=== PATIENT | female | born 1935 | race Caucasian/White ===

== ENCOUNTER 2016-04-29 10:02 | Outpatient (CLI) | payer MEDICARE, BC | END 2016-04-29 10:03 | disposition home or self-care (01) | DX: I48.91 Unspecified atrial fibrillation (principal); Z79.01 Long term (current) use of anticoagulants ==

== ENCOUNTER 2016-09-01 10:46 | Outpatient (CLI) | payer MEDICARE, BC | END 2016-09-01 10:47 | disposition home or self-care (01) | LOC: LAB 10:46 | PROVIDERS: ATTEND Internal Medicine | DX: I48.91 Unspecified atrial fibrillation (principal); Z79.01 Long term (current) use of anticoagulants | CPT/HCPCS: 85610 ==

== ENCOUNTER 2017-04-25 14:58 | Outpatient (CLI) | payer MEDICARE, OTHER | END 2017-04-25 14:59 | disposition critical access hospital (66) | LOC: EMS 14:58 | PROVIDERS: ATTEND Surgery | DX: R55 Syncope and collapse (principal) | CPT/HCPCS: A0425; A0429 ==

== ENCOUNTER 2017-04-25 15:15 | Emergency (ER) | payer MEDICARE, OTHER ==
--- NOTE | 2017-04-25 15:41 | ED Physician Documentation ---
History of Present Illness - Stated complaint Stated Complaint: NEAR SYNCOPE - Chief complaint Chief Complaint: Neuro - History obtained from History obtained from: Patient, EMS - History of Present Illness Timing: Today Pain level max: 0 Pain level now: 0 Improved by: sitting down Worsened by: standing up - Additonal information Additional information: Patient is an 81-year-old female who had approximately 500 mL's of blood removed this morning at the [facility], then went to [facility] and was walking around when she began to feel lightheaded and dizzy. This resolved with sitting down. Now feels normal. She normally has her blood taken like this approximately every 6 weeks for her erythrocytosis. Did not have any chest pain , shortness of breath, palpitations. Review of Systems Ten Systems: 10 systems reviewed and negative Constitutional: denies: Fever, Chills Eyes: denies: Photophobia Ears: denies: Ear pain Nose: denies: Rhinorrhea / runny nose, Congestion Throat: denies: Sore throat Cardiac: denies: Chest pain / pressure, Palpitations Respiratory: denies: Dyspnea, Cough, Wheezing GI: denies: Abdominal Pain, Nausea, Vomiting, Diarrhea Skin: denies: Rash Musculoskeletal: denies: Neck pain, Back pain Neurologic: denies: Focal weakness, Numbness, Headache PD PAST MEDICAL HISTORY - Past Medical History Past Medical History: Yes Cardiovascular: Hypertension, Atrial fibrillation Respiratory: None Endocrine/Autoimmune: None GI: None : None HEENT: Chronic vision loss Psych: None Musculoskeletal: Chronic back pain Derm: None Other Past Medical History: erythrocytosis. - Past Surgical History Past Surgical History: Yes General: Other Cardiovascular: Pacemaker HEENT: Other - Present Medications Home Medications: Ambulatory Orders Medication Instructions Recorded Confirmed Calcium Carbonate/Vitamin D3 600 mg PO BID 09/04/12 04/25/17 [Calcium + Vitamin D Tablet] Lisinopril/Hydrochlorothiazide 1 each PO DAILY 09/04/12 04/25/17 [Lisinopril-Hctz 20-12.5 mg Tab] Loratadine [Claritin] 10 mg PO DAILY 09/04/12 04/25/17 Warfarin Sodium [Coumadin] 4 mg PO DAILY 09/04/12 04/25/17 amLODIPine [Norvasc] 2.5 mg PO DAILY 09/04/12 04/25/17 Cephalexin [Keflex] 500 mg PO Q6H #20 capsule 04/25/17 - Allergies Allergies/Adverse Reactions: Allergies Allergy/AdvReac Type Severity Reaction Status Date / Time codeine [Codeine] AdvReac Mild Nausea Verified 04/29/16 10:11 - Social History Does the pt smoke?: No Smoking Status: Never smoker PD ED PE NORMAL - Vitals Vital signs reviewed: Yes - General General: Alert and oriented X 3, No acute distress - HEENT HEENT: Moist mucous membranes - Neck Neck: Supple, no meningeal sign - Cardiac Cardiac: RRR, Strong equal pulses, Other (3/6 systolic murmur) - Respiratory Respiratory: No respiratory distress, Clear bilaterally - Abdomen Abdomen: Soft, Non tender, Non distended - Derm Derm: Warm and dry - Extremities Extremities: No edema, No calf tenderness / cord - Neuro Neuro: Alert and oriented X 3, lead recoverer 2-12 intact, No motor deficit, No sensory deficit, Normal speech - Psych Psych: Normal mood, Normal affect Results - Vitals Vitals: Vital Signs - 24 hr 04/25/17 04/25/17 15:20 16:35 Temperature 36.1 C L Heart Rate 59 L 61 Respiratory 18 14 Rate Blood Pressure 140/67 H 133/66 H O2 Saturation 99 97 Oxygen O2 Source Room air - EKG (time done) 1525 Rate: Rate (enter#) (64) Rhythm: Paced - Labs Labs: Laboratory Tests 04/25/17 04/25/17 04/25/17 15:48 15:48 15:48 WBC 9.5 RBC 4.81 Hgb 13.3 Hct 40.5 MCV 84.3 MCH 27.6 MCHC 32.8 RDW 16.3 H Plt Count 230 MPV 8.3 Neut # 5.8 Lymph # 2.4 Jennings # 0.9 Eos # 0.3 Baso # 0.1 Absolute Nucleated RBC 0.00 Nucleated RBC % 0.0 PT 28.6 H INR 2.6 H Sodium 137 Potassium 3.8 Chloride 101 Carbon Dioxide 27 Anion Gap 9.0 BUN 22 H Creatinine 0.8 Estimated GFR (MDRD) 69 L Glucose 136 H Calcium 8.8 Urine Color Urine Clarity Urine pH Ur Specific Biggs Urine Protein Urine Glucose (UA) Urine Ketones Urine Occult Blood Urine Nitrite Urine Bilirubin Urine Urobilinogen Ur Leukocyte Esterase Urine RBC Urine WBC Ur Squamous Epith Cells Amorphous Sediment Urine Bacteria Ur Microscopic Review Urine Culture Comments 04/25/17 16:00 WBC RBC Hgb Hct MCV MCH MCHC RDW Plt Count MPV Neut # Lymph # Jennings # Eos # Baso # Absolute Nucleated RBC Nucleated RBC % PT INR Sodium Potassium Chloride Carbon Dioxide Anion Gap BUN Creatinine Estimated GFR (MDRD) Glucose Calcium Urine Color YELLOW Urine Clarity HAZY Urine pH 7.0 Ur Specific Biggs 1.020 Urine Protein NEGATIVE Urine Glucose (UA) NEGATIVE Urine Ketones NEGATIVE Urine Occult Blood NEGATIVE Urine Nitrite NEGATIVE Urine Bilirubin NEGATIVE Urine Urobilinogen 0.2 (NORMAL) Ur Leukocyte Esterase TRACE H Urine RBC None Seen Urine WBC 4-5 Ur Squamous Epith Cells NONE SEEN Amorphous Sediment Marked Urine Bacteria None Seen Ur Microscopic Review INDICATED Urine Culture Comments INDICATED PD MEDICAL DECISION MAKING - ED course Complexity details: reviewed old records, reviewed results, re-evaluated patient , considered differential, d/w patient ED course: Patient is an 81-year-old female with an episode of lightheadedness and near syncope earlier today. No chest pain, no palpitations. No evidence of arrhythmia. No acute findings on telemetry. No acute findings on laboratory testing other than what appears to be a UTI. Abdomen is soft, nontender nondistended. Will place on antibiotics for the UTI and see how she feels at home. Tolerating p.o. without difficulty here. No lightheaded or dizziness with standing or walking here. Patient counseled regarding signs and symptoms for which I believe and urgent re-evaluation would be necessary. Patient with good understanding of and agreement to plan and is comfortable going home at this time This document was made in part using voice recognition software. While efforts are made to proofread this document, sound alike and grammatical errors may occur. Departure - Departure Disposition: 01 Home, Self Care Clinical Impression: Near syncope UTI (urinary tract infection) Qualifiers: Urinary tract infection type: acute cystitis Hematuria presence: without hematuria Qualified Code(s): N30.00 - Acute cystitis without hematuria Condition: Good Instructions: ED Near Syncope Vasovagal Follow-Up: Colin Adams MD [Primary Care Provider] - Within 3 Days Prescriptions: Cephalexin [Keflex] 500 mg PO Q6H #20 capsule Comments: Take all antibiotics until gone. Return if you worsen. Drink plenty of fluid and rest. Discharge Date/Time: 04/25/17 16:38
[2017-04-25 15:55] LABS: BASOPHILS # (AUTO) 0.1 10^3/uL (0.0-0.1); EOSINOPHILS # (AUTO) 0.3 10^3/uL (0.0-0.7); HGB - HEMOGLOBIN 13.3 g/dL (12.0-16.0); LYMPHOCYTES # (AUTO) 2.4 10^3/uL (1.5-3.5); LYMPHOCYTES % (AUTO) 25.8 %; MEAN CORPUSCULAR HEMOGLOBIN 27.6 pg (27.0-31.0); MEAN CORPUSCULAR HGB CONC 32.8 g/dL (32.0-36.0); MEAN CORPUSCULAR VOLUME 84.3 fL (81.0-99.0); MEAN PLATELET VOLUME 8.3 fL (7.9-10.8); MONOCYTES # (AUTO) 0.9 10^3/uL (0.0-1.0); MONOCYTES % (AUTO) 9.3 %; NEUTROPHILS # (AUTO) 5.8 10^3/uL (1.5-6.6); NEUTROPHILS % (AUTO) 60.9 %; PLT - PLATELET COUNT 230 10^3/uL (130-450); RED BLOOD COUNT 4.81 10^6/uL (4.20-5.40); RED CELL DISTRIBUTION WIDTH 16.3 % (12.0-15.0); WHITE BLOOD COUNT 9.5 x10^3/uL (4.8-10.8)
[2017-04-25 16:02] LABS: CALCIUM 8.8 mg/dL (8.5-10.3); CREATININE 0.8 mg/dL (0.4-1.0); INR 2.6 (0.8-1.2); PT - PROTHROMBIN TIME 28.6 secs (9.9-12.6)
[2017-04-25 16:12] LABS: BILIRUBIN,URINE NEGATIVE (NEGATIVE); GLUCOSE, URINE (UA) NEGATIVE (NEGATIVE); KETONES,URINE (UA) NEGATIVE (NEGATIVE); LEUKOCYTE ESTERASE, URINE TRACE (NEGATIVE); NITRITE,URINE NEGATIVE (NEGATIVE); OCCULT BLOOD,URINE NEGATIVE (NEGATIVE); PROTEIN,URINE NEGATIVE (NEGATIVE); UROBILINOGEN,URINE 0.2 (NORMAL) E.U./dL (NORMAL)
[2017-04-25 16:13] LABS: CLARITY,URINE HAZY (CLEAR)
[2017-04-25 16:24] LABS: AMORPHOUS SEDIMENT,UR Marked /LPF; BACTERIA,URINE None Seen /HPF (None Seen); RBC,URINE None Seen /HPF (0-5); SQUAMOUS EPITHELIAL CELL,UR NONE SEEN (<= Few)
[2017-04-25] MEDS ORDERED: cephALEXin 250 MG CAPSULE PO STA (16:29)
[2017-04-25 16:37] VITALS: BP 133/66
== END 2017-04-25 16:38 | disposition home or self-care (01) ==
LOC: EDUNIT# → ED 15:15
DX: R55 Syncope and collapse (principal); N30.00 Acute cystitis without hematuria; I48.91 Unspecified atrial fibrillation; I10 Essential (primary) hypertension; D75.1 Secondary polycythemia; Z95.0 Presence of cardiac pacemaker; Z79.01 Long term (current) use of anticoagulants
CPT/HCPCS: 36415; 80048; 81001; 81003; 85025; 85610; 87086; 93005; 99283

== ENCOUNTER 2017-07-12 09:39 | Outpatient (CLI) | payer MEDICARE, OTHER | END 2017-07-12 09:40 | disposition home or self-care (01) | LOC: LAB 09:39 | PROVIDERS: ATTEND Internal Medicine | DX: I48.91 Unspecified atrial fibrillation (principal); Z79.01 Long term (current) use of anticoagulants | CPT/HCPCS: 85610 ==

== ENCOUNTER 2017-08-29 11:16 | Outpatient (CLI) | payer MEDICARE, OTHER | END 2017-08-29 11:17 | disposition home or self-care (01) | LOC: LAB 11:16 | PROVIDERS: ATTEND Internal Medicine | DX: I48.91 Unspecified atrial fibrillation (principal); Z79.01 Long term (current) use of anticoagulants | CPT/HCPCS: 85610 ==

== ENCOUNTER 2017-10-10 09:53 | Outpatient (CLI) | payer MEDICARE, OTHER ==
[2017-10-10 10:12] LABS: INR 1.8 (0.8-1.2); PT - PROTHROMBIN TIME 19.5 secs (9.9-12.6)
== END 2017-10-10 09:54 | disposition home or self-care (01) ==
LOC: LAB 09:53
PROVIDERS: ATTEND Internal Medicine
DX: I48.91 Unspecified atrial fibrillation (principal); Z79.01 Long term (current) use of anticoagulants
CPT/HCPCS: 36415; 85610

== ENCOUNTER 2018-03-06 14:57 | Outpatient (CLI) | payer MEDICARE, OTHER ==
[2018-03-06 15:41] LABS: INR 2.2 (0.8-1.2)
== END 2018-03-06 14:58 | disposition home or self-care (01) ==
LOC: LAB 14:57
PROVIDERS: ATTEND Internal Medicine
DX: I48.91 Unspecified atrial fibrillation (principal); Z79.01 Long term (current) use of anticoagulants
CPT/HCPCS: 36415; 85610

== ENCOUNTER 2018-05-16 10:05 | Outpatient (CLI) | payer MEDICARE, OTHER | END 2018-05-16 10:06 | disposition home or self-care (01) | LOC: LAB 10:05 | PROVIDERS: ATTEND Internal Medicine | DX: I48.91 Unspecified atrial fibrillation (principal); Z79.01 Long term (current) use of anticoagulants | CPT/HCPCS: 85610 ==

== ENCOUNTER 2019-05-29 13:37 | Outpatient (CLI) | payer MEDICARE, OTHER | END 2019-05-29 13:38 | disposition home or self-care (01) | LOC: LAB 13:37 | PROVIDERS: ATTEND Internal Medicine | DX: I48.91 Unspecified atrial fibrillation (principal); Z79.01 Long term (current) use of anticoagulants | CPT/HCPCS: 85610 ==

== ENCOUNTER 2019-09-24 13:33 | Outpatient (CLI) | payer MEDICARE, OTHER | END 2019-09-24 13:34 | disposition home or self-care (01) | LOC: LAB 13:33 | PROVIDERS: ATTEND Internal Medicine | DX: I48.91 Unspecified atrial fibrillation (principal); Z79.01 Long term (current) use of anticoagulants | CPT/HCPCS: 85610 ==

== ENCOUNTER 2019-12-13 10:23 | Outpatient (CLI) | payer MEDICARE, OTHER ==
--- NOTE | 2019-12-13 11:18 | SLEEP CARE CONSULTATION ---
Information from patient questionnaire entered by Ashely Farias. I have reviewed and concur with the information entered by Ashely Farias. This document represents the service I personally performed and the decisions made by me, Saba Gilbert ARNP. History of Present Illness Service Date and Time: 12/13/2019 1023 Reason for Visit: New patient Chief Complaint: reports: Insomnia (difficulty getting back to sleep if awakens), Snoring, Other (referral by MD, erythrocytosis with unknown cause). denies: Unrefreshed sleep, Excessive daytime sleepiness, Observed pauses in breathing, Fatigue, Frequent awakenings at night Date of Onset: 4-5 years Usual bedtime: 10:30-11 pm Time it takes to fall asleep: a few minutes Snores at night: Yes (i guess) Observed to quit breathing while asleep: No Number of times waking at night: 2-3 Reasons for waking at night: reports: Bathroom, Other (awake from dreams). denies: Choking, Snoring, Gasping for air Toss, Turn, or Twitch while sleeping: No Recalls having dreams: Yes Usually gets out of bed at: 7-7:30 am Feels refreshed in the morning: Yes Morning headache: No Sleepy or fatigued during the day: Yes Ever fallen asleep while driving: No Takes day naps: Yes (occasionally; 1-2 times a week for 20 minutes) Dreams during day naps: No Prior sleep studies: No Additional HPI information: I had the pleasure of seeing ALEJANDRINA NAVARRO today regarding the possibility of her having a sleep disorder. Her current complaints are snoring and history of erythrocytosis for which her head sawyer automatic sent her for evaluation of possible RICHAR. Patient has a pacemaker and is on chronic warfarin. She has hypertension and Raynauds. They have had her give blood as therapy but she states it is getting hard for them to obtain it. There is no somniloquy (sleep talking) or somnambulism (sleep walking). She has never experienced sleep paralysis, cataplexy, or symptoms of restless leg syndrome. - Parasomnia Symptoms Ever been unable to move upon waking from sleep: No Walks in sleep: No Talks in sleep: No Ever acted out dreams in sleep: No Ever felt weak in the knees when startled or emotional: No Bothered by creepy, crawly, restless sensations in legs: No Problems with memory or concentration: No Subjective Initial [place] Sleepiness Scale score: 7 (in 2020) Past Medical History Past Medical History: reports: Hypertension, Claustrophobia, Arrythmia, Other (A-fib/pacemaker, RVO, Raynaud's). denies: Dysphagia, Congestive Heart Failure, Diabetes, Stroke, Coronary Heart Disease, Hypothyroidism, Anemia, Anxiety, Depression, Mood disorder, GERD Social History The patient's occupation is a Retired. Patient is / and lives in [place]. Have you smoked in the past 12 months: No Alcohol use: Yes Alcohol amount and frequency: 1-2 drinks 3-4 times a week Caffeine use: Yes Caffeine amount and frequency: 1 glass ice tea during the hot days Family History Family history of sleep disordered breathing: No Allergies and Home Medications Drug allergies reviewed: Yes (codiene sensitivity) Home medication list reviewed: Yes Allergy and home medication list: amlodipine 2.5 mg lisinopril/ HCTZ 12.5 mg warfarin 4 mg 5 times/6 mg 2 times a week loratidine 10 mg biotin 5000 mg ducosate sodium 100 mg Review of Systems Cardiovascular: reports: high blood pressure, irregular heart rate or pulse, leg or foot swelling. denies: palpitations, chest pain Respiratory: reports: shortness of breath (only when climbing elevations) Gastrointestinal: reports: difficulty swallowing (gets coughing spells occasionally with liquids). denies: heartburn Neurological: denies: headaches, seizure, head trauma, speech dysfunction, gait or balance problems, fainting or unconsciousness Psychiatric: reports: claustrophobia. denies: anxiety, depression Ear/Nose/Throat: reports: tonsillectomy. denies: nasal congestion, sinus problems, nose bleeds, dry mouth/throat, hoarseness, injury to nose, wisdom teeth removed Endocrine: denies: thyroid disease Musculoskeletal: reports: back pain, muscle pain or cramping (leg cramps at night, in toes or calf; occasional). denies: mobility problems Immunologic: reports: sneezing (runny nose), allergies to food or environment (seasonal) Physical Exam Blood Pressure: 122/80 Cuff size: regular Heart Rate: 59 O2 Saturation: 98 Height: 5 ft 2 in Weight: 109 lb 9.6 oz Body Mass Index: 20.0 BMI Classification: Healthy weight HEENT: No craniofacial malformation Nostrils: patent to airflow Turbinates: normal Septum: midline Mouth and throat: narrow oropharynx Soft palate: normal Hard palate: normal Uvula: normal Uvula visualization: 25% Mallampati Class III Tongue: normal in size Tonsils: absent bilaterally Chin and jaw: normal size and position Neck: normal w/o lymphadenopathy or thyromegaly Heart: irregular rhythm Lungs: clear bilaterally Impression and Plan 1. Suspected Obstructive Sleep Apnea-Hypopnea Syndrome, as suggested by a history of snoring, atrial fibrillation (on warfarin and pacemaker), erythrocyt osis and excessive daytime sleepiness. Narrow oropharynx and obesity are common predisposing factors for obstructive sleep apnea-hypopnea syndrome. I recommend proceeding to polysomnography to confirm the diagnosis and to assess severity. If the patient has significant sleep disordered breathing, a manual CPAP titration study will also be performed to find the optimal treatment pressure. I informed the patient of what the sleep studies involve and after some discussion, obtained agreement to proceed. The pathophysiology of obstructive sleep apnea-hypopnea syndrome was discussed with the patient and health risks of cardiovascular and cerebrovascular disease if not treated. AASM brochure for obstructive sleep apnea-hypopnea syndrome given and reviewed. Risks of drowsy driving discussed in detail and patient advised to avoid long distance driving and to line puller at the first sign of drowsiness. Patient agreed to plan. * Schedule polysomnography +- manual CPAP titration study. * Avoid long distance driving or driving when feeling sleepy. * Avoid alcohol, sedative and muscle relaxant around bedtime. * Review instructions provided by trained office staff on how to prepare for the sleep study. * Return for follow-up after sleep study completed. Visit Type: In Office Time Spent with Patient (minutes): 35 Provider Statement: I spent 100% of the Face to Face Visit with the patient with greater than 50% spent counseling the patient and coordination of care.
[2019-12-13 11:19] VITALS: BP 122/80
== END 2019-12-13 10:24 | disposition home or self-care (01) ==
LOC: SC 10:23
PROVIDERS: ATTEND Nurse Practitioner Family
DX: D75.1 Secondary polycythemia (principal); R06.83 Snoring; I48.91 Unspecified atrial fibrillation; I10 Essential (primary) hypertension; Z79.01 Long term (current) use of anticoagulants; Z95.0 Presence of cardiac pacemaker
CPT/HCPCS: 99204; G0463; 99212

== ENCOUNTER 2020-01-15 20:33 | Outpatient (CLI) | payer MEDICARE, OTHER | END 2020-01-15 20:34 | disposition home or self-care (01) | LOC: SC 20:33 | PROVIDERS: ATTEND Nurse Practitioner Family | DX: G47.33 Obstructive sleep apnea (adult) (pediatric) (principal) | CPT/HCPCS: 95810 ==

== ENCOUNTER 2020-01-23 10:10 | Outpatient (CLI) | payer MEDICARE, OTHER ==
--- NOTE | 2020-01-23 11:05 | SLEEP CARE CONSULTATION ---
Information from patient questionnaire entered by Ashely Farias. I have reviewed and concur with the information entered by Ashely Farias. This document represents the service I personally performed and the decisions made by , Saba Gilbert ARNP. History of Present Illness Service Date and Time: 01/23/2020 1010 Initial [place] Sleepiness Scale score: 7 (in 2019) Current [place] Sleepiness Scale score: 4 Additional HPI information: ALEJANDRINA NAVARRO returns for follow up and results of the recently performed polysomnography. She was found to have severe obstructive sleep apnea with a padilla oxygen saturation of 81%. I explained the pathophysiology behind obstructive sleep apnea. We then spent quite a bit of time discussing different treatment options. For mild obstructive sleep apnea, surgery and oral appliance are alternatives to nasal CPAP therapy but in moderate or severe cases, nasal CPAP is the most effective and reliable treatment. After some discussion, the patient opted to go with the nasal CPAP therapy. Patient would like to do a manual titration study. A manual titration study will be ordered to find optimal pressure. I explained how CPAP machine works with sample devices [employer] Dreamstation and DynaPump [id number] and what to expect when using the machine. Sleep Study - Results Type of Sleep Study: Polysomnography Prior sleep studies: No Polysomnography/Home Sleep Study results: IMPRESSION: The quality of the study is good. The patient had reduced sleep efficiency due to frequent awakenings after the sleep onset.. The sleep architecture was abnormal for sleep fragmentation and reduced amount of time spent in REM and slow wave sleep (N3). Respiratory monitoring showed severe obstructive sleep apneahypopnea (AHI = 40.8) associated with frequent arousals, oxyhemoglobin desaturation and mild hypoxia (padilla oxygen saturation of 81%). Baseline oxygen saturation was normal. The respiratory events occurred independently of sleep stage and body position (supine AHI = 55.2; non-supine = 24.91). Snore was light in intensity. There was no significant periodic leg movement of sleep. Cardiac rhythm was paced at 60 beats per minute. No abnormal behavior (parasomnia) observed during the night. Allergies and Home Medications Drug allergies reviewed: Yes (codiene) Home medication list reviewed: Yes (no changes) Review of Systems Review of systems same as previous: Yes (no changes) Physical Exam Heart Rate: 58 O2 Saturation: 93 Height: 5 ft 2 in Weight: 108 lb Body Mass Index: 19.7 BMI Classification: Healthy weight Impression and Plan 1. Obstructive Sleep Apnea-Hypopnea Syndrome, severe, with lowest oxygen saturation of 81%. Obviously this is the cause of the patients symptoms of unrefreshed sleep, and excessive daytime sleepiness. Positive pressure therapy could benefit her hypertension, erythrocytosis and heart arrhythmia. A manual titration study will be completed to find optimal treatment pressure and she will follow up in the office after the study is completed. Compliance guidelines also reviewed. A copy of compliance guidelines will be given for reference at check out. Because the apnea is more severe supine, I instructed to avoid sleeping supine using pillow positioning until able to start CPAP use. * Titration study * Avoid alcohol consumption near bedtime. * Avoid supine sleep until using CPAP. * The patient is again cautioned about driving until sleepiness completely resolves. * Return after titration study completed for set up on CPAP machine. Visit Type: In Office Time Spent with Patient (minutes): 21 Provider Statement: I spent 100% of the Face to Face Visit with the patient with greater than 50% spent counseling the patient and coordination of care.
== END 2020-01-23 10:11 | disposition home or self-care (01) ==
LOC: SC 10:10
PROVIDERS: ATTEND Nurse Practitioner Family
DX: G47.33 Obstructive sleep apnea (adult) (pediatric) (principal)
CPT/HCPCS: 99213; G0463; 99212

== ENCOUNTER 2021-01-12 14:09 | Outpatient (CLI) | payer MEDICARE, OTHER ==
--- NOTE | 2021-01-12 14:45 | SLEEP CARE CONSULTATION ---
Information from patient questionnaire entered by Nora Guaman. I have reviewed and concur with the information entered by Nora Guaman. This document represents the service I personally performed and the decisions made by , Saba Gilbert ARNP. History of Present Illness Service Date and Time: 01/12/2021 1409 Previous diagnosis: Severe, Obstructive Sleep Apnea-Hypopnea Syndrome AHI: 40.8 Reason for follow up: other (11 month - never did titration study) Prior sleep studies: Yes Year and Where: 2019 [facility] Type of Sleep Study: Polysomnography HPI additional information: ALEJANDRINA NAVARRO was diagnosed to have severe, AHI 40.8, obstructive sleep apnea- hypopnea syndrome and returns today for follow-up. She did not get her titration study due to issues with her skin cancer. She had some cancer spots removed from her head and was not sure she should come in for the study. She is now well healed and comes in to do the study. Sleep Study - Results Type of Sleep Study: Polysomnography Prior sleep studies: Yes Subjective Initial [place] Sleepiness Scale score: 7 (in 2019) Current [place] Sleepiness Scale score: 7 Allergies and Home Medications Home medication list reviewed: Yes (no changes) Review of Systems Review of systems same as previous: Yes (no changes) Physical Exam Heart Rate: 71 Height: 5 ft 2 in Weight: 108 lb Body Mass Index: 19.7 BMI Classification: Healthy weight Impression and Plan 1. Suspected Obstructive Sleep Apnea-Hypopnea Syndrome, as previously diagnosed and as still suggested by a history of snoring, frequent awakening during the night, and occasional insomnia. Patient did not get her titration study that was ordered and comes in for follow up today to continue process for getting treatment for her severe RICHAR. She has a history of skin cancer and had some removed from her scalp. She did not want to go in for the sleep study and have the sensors on her head until the sores were well healed. I recommend proceeding to polysomnography to confirm the diagnosis and to assess severity. I obtained agreement to proceed. The pathophysiology of obstructive sleep apnea-hypopnea syndrome was discussed with the patient and health risks of cardiovascular and cerebrovascular disease if not treated. Risks of drowsy driving discussed in detail and patient advised to avoid long distance driving and to focus puller at the first sign of drowsiness. Patient agreed to plan. * Schedule polysomnography/HST. * Avoid long distance driving or driving when feeling sleepy. * Avoid alcohol, sedative and muscle relaxant around bedtime. * Maintain a healthy weight. * Review instructions provided by trained office staff on how to prepare for the sleep study. * Return for follow-up after sleep study completed. Counseling Topics: Weight control Visit Type: In Office Time Spent with Patient (minutes): 18 Provider Statement: I spent 100% of the Face to Face Visit with the patient with greater than 50% spent counseling the patient and coordination of care.
== END 2021-01-12 14:10 | disposition home or self-care (01) ==
LOC: SC 14:09
PROVIDERS: ATTEND Nurse Practitioner Family
DX: G47.33 Obstructive sleep apnea (adult) (pediatric) (principal)
CPT/HCPCS: 99212; G0463

== ENCOUNTER 2021-02-10 20:30 | Outpatient (CLI) | payer MEDICARE, OTHER | END 2021-02-10 20:31 | disposition home or self-care (01) | LOC: SC 20:30 | PROVIDERS: ATTEND Nurse Practitioner Family | DX: G47.33 Obstructive sleep apnea (adult) (pediatric) (principal) | CPT/HCPCS: 95810 ==

== ENCOUNTER 2021-02-25 10:29 | Outpatient (CLI) | payer MEDICARE, OTHER ==
[2021-02-25 11:07] VITALS: BP 126/70
--- NOTE | 2021-02-25 11:07 | SLEEP CARE CONSULTATION ---
Information from patient questionnaire entered by Christelle Ewing MA. I have reviewed and concur with the information entered by Christelle Ewing MA. This document represents the service I personally performed and the decisions made by , Saba Gilbert ARNP. History of Present Illness Service Date and Time: 02/25/2021 1029 Initial [place] Sleepiness Scale score: 7 (in 2019) Current [place] Sleepiness Scale score: 4 (2020) Additional HPI information: ALEJANDRINA NAVARRO returns for follow up and results of the recently performed polysomnography. I explained the pathophysiology behind obstructive sleep apnea. We then spent quite a bit of time discussing different treatment options. For mild obstructive sleep apnea, surgery and oral appliance are alternatives to nasal CPAP therapy but in moderate or severe cases, nasal CPAP is the most effective and reliable treatment. I explained how CPAP machine works. Patient voiced that she would like to try an oral appliance because she does not feel she could tolerate the CPAP mask. Patient does not drink alcohol. Patient was cautioned about risks of drowsy driving until sleepiness symptoms resolve. Sleep Study - Results Type of Sleep Study: Polysomnography Prior sleep studies: Yes Year and Where: 2020 [facility] Polysomnography/Home Sleep Study results: IMPRESSION: The quality of the study is good. The patient had slightly reduced sleep efficiency due to a few awakenings during the night. The sleep architecture was relatively normal considering the first-night effect. Respiratory monitoring showed mild obstructive sleep apnea-hypopnea (AHI = 10.3) associated with oxyhemoglobin desaturation and moderate hypoxia (padilla oxygen saturation of 79%). Baseline oxygen saturation was normal. The respiratory events occurred mainly during supine sleep (supine AHI = 14.6; non-supine = 7.12). Snore was light in intensity. There was no significant periodic leg movement of sleep. Cardiac rhythm was paced at 60 beats per minute. No abnormal behavior (parasomnia) observed during the night. Allergies and Home Medications Home medication list reviewed: Yes (no changes) Review of Systems Review of systems same as previous: Yes (no changes) Physical Exam Vital signs obtained and entered by: Kaylin Bhandari CMA Blood Pressure: 126/70 (Right wrist) Cuff size: wrist Heart Rate: 72 O2 Saturation: 96 (with thick mask) Height: 5 ft 2 in Weight: 104 lb (with boots) Body Mass Index: 19.0 BMI Classification: Healthy weight Impression and Plan 1. Obstructive Sleep Apnea-Hypopnea Syndrome, mild, with lowest oxygen saturation of 79%. Obviously this is the cause of the patients symptoms of unrefreshed sleep, and excessive daytime sleepiness. Positive pressure therapy could benefit hypertension and arrhythmia. As mentioned above, the patient chose an oral appliance to treat their apnea. A 3 month follow up will be made to see if appliance has reduced symptoms. If so, another polysomnography will be ordered with use of the oral appliance to check efficacy in reducing apnea. Until patient is able to use the oral appliance, positional therapy is advised to avoid supine sleep with pillow positioning because apnea is more severe supine. * Oral appliance. * Maintain a healthy weight. * Avoid supine sleep until using oral appliance. * The patient is again cautioned about driving until sleepiness completely resolves. * Return one month after oral appliance obtained. I will assess response to therapy and compliance at that time. Counseling Topics: Weight control Visit Type: In Office Time Spent with Patient (minutes): 26 Provider Statement: I spent 100% of the Face to Face Visit with the patient with greater than 50% spent counseling the patient and coordination of care.
== END 2021-02-25 10:30 | disposition home or self-care (01) ==
LOC: SC 10:29
PROVIDERS: ATTEND Nurse Practitioner Family
DX: G47.33 Obstructive sleep apnea (adult) (pediatric) (principal)
CPT/HCPCS: 99213; G0463; 99212

== ENCOUNTER 2022-09-07 16:30 | Outpatient (CLI) | payer MEDICARE, OTHER ==
[2022-09-07 20:24] LABS: BASOPHILS % (AUTO) 0.5 %; EOSINOPHILS % (AUTO) 0.5 %; HCT - HEMATOCRIT 50.2 % (37.0-47.0); HGB - HEMOGLOBIN 16.2 g/dL (12.0-16.0); LYMPHOCYTES # (AUTO) 1.4 10^3/uL (1.5-3.5); LYMPHOCYTES % (AUTO) 23.1 %; MEAN CORPUSCULAR HEMOGLOBIN 30.8 pg (27.0-31.0); MEAN CORPUSCULAR HGB CONC 32.3 g/dL (32.0-36.0); MEAN CORPUSCULAR VOLUME 95.4 fL (81.0-99.0); MEAN PLATELET VOLUME 10.8 fL (7.9-10.8); MONOCYTES # (AUTO) 0.6 10^3/uL (0.0-1.0); MONOCYTES % (AUTO) 9.8 %; NEUTROPHILS # (AUTO) 4.1 10^3/uL (1.5-6.6); NEUTROPHILS % (AUTO) 65.9 %; PLT - PLATELET COUNT 170 10^3/uL (130-450); RED BLOOD COUNT 5.26 10^6/uL (4.20-5.40); RED CELL DISTRIBUTION WIDTH 14.2 % (12.0-15.0); WHITE BLOOD COUNT 6.2 x10^3/uL (4.8-10.8)
[2022-09-07 20:40] LABS: ALBUMIN 4.2 g/dL (3.2-5.5); ALBUMIN/GLOBULIN RATIO 1.4 (1.0-2.2); BILIRUBIN,TOTAL 1.6 mg/dL (0.2-1.0); CALCIUM 9.2 mg/dL (8.5-10.3); CREATININE 0.7 mg/dL (0.4-1.0); POTASSIUM 4.6 mmol/L (3.5-5.0); TOTAL PROTEIN 7.3 g/dL (6.7-8.2)
[2022-09-07 20:56] LABS: THYROID STIMULATING HORMONE 1.63 uIU/mL (0.34-5.60)
== END 2022-09-07 16:45 | disposition home or self-care (01) ==
LOC: LAB.N 16:30
PROVIDERS: ATTEND Family Medicine
DX: R06.09 Other forms of dyspnea (principal); R06.02 Shortness of breath
CPT/HCPCS: 36415; 80053; 83880; 84443; 85025

== ENCOUNTER 2022-09-07 18:21 | Outpatient (CLI) | payer MEDICARE, OTHER ==
--- NOTE | 2022-09-08 10:01 | XRAY Report ---
PROCEDURE: Chest 2 View X-Ray INDICATIONS: SOB TECHNIQUE: 2 views of the chest were acquired. COMPARISON: None. FINDINGS: Surgical changes and devices: None. Lungs and pleura: Small pleural effusions, right greater than left. Mediastinum: Mediastinal contours appear normal. Heart size is enlarged. Bones and chest wall: No suspicious bony lesions. Overlying soft tissues appear unremarkable. IMPRESSION: Small pleural effusions, right greater than left. Cardiomegaly. Reviewed by: Diego Dominguez on 09/08/2022 10:00 AM PDT Approved by: Diego Dominguez on 09/08/2022 10:00 AM PDT Station ID: [id number]
== END 2022-09-07 18:22 | disposition home or self-care (01) ==
LOC: DI 18:21
PROVIDERS: ATTEND Family Medicine
DX: J90 Pleural effusion, not elsewhere classified (principal); R00.9 Unspecified abnormalities of heart beat; R06.02 Shortness of breath
CPT/HCPCS: 36415; 80053; 83880; 84443; 85025

== ENCOUNTER 2022-09-08 20:01 | Emergency (ER) | payer MEDICARE, OTHER ==
--- NOTE | 2022-09-08 20:50 | ED Physician Documentation ---
History of Present Illness - Stated complaint Stated Complaint: ABNORMAL LABS - Chief complaint Chief Complaint: General - Additonal information Additional information: 87-year-old female who has a history of A-fib on Coumadin, history of a pacemaker as well as congestive heart failure was advised to come to the emergency department today after being seen at a local walk-in clinic yesterday for progressive shortness of air and lower extremity edema. Provider yesterday obtained routine labs and included a BNP. She was called today to come to the ER because the labs were abnormal. Patient reports to me that she has had chronic lower extremity swelling for many years but has been acutely worse over the last several weeks. She is also having increasing shortness of air especially with exertion. She denies chest pain. When seen at the local walk-in clinic yesterday she was advised to stop the amlodipine and was started on Lasix 20 mg daily. Patient is scheduled to see Dr. Adams this upcoming week. 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 She states to me that if she had not been called to come to the ER she would not be here this evening. No fevers. No cough. Review of Systems Constitutional: denies: Fever Cardiac: reports: Pedal edema. denies: Chest pain / pressure, Palpitations Respiratory: reports: Dyspnea. denies: Cough, Hemoptysis, Wheezing GI: reports: Reviewed and negative : reports: Reviewed and negative PD PAST MEDICAL HISTORY - Past Medical History Past Medical History: Yes Cardiovascular: Hypertension, Atrial fibrillation Respiratory: None Endocrine/Autoimmune: None GI: None : None HEENT: Chronic vision loss Psych: None Musculoskeletal: Chronic back pain Derm: None - Past Surgical History Past Surgical History: Yes General: Other Cardiovascular: Pacemaker HEENT: Other - Present Medications Home Medications: Ambulatory Orders Medication Instructions Recorded Confirmed Lisinopril/Hydrochlorothiazide 1 each PO DAILY 09/04/12 09/30/21 [Lisinopril-Hctz 20-12.5 mg Tab] Warfarin Sodium [Coumadin] 6 mg PO UD 09/04/12 09/30/21 amLODIPine [Norvasc] 2.5 mg PO DAILY 09/04/12 09/30/21 Fexofenadine/Pseudoephedrine 10 mg PO DAILY 02/19/19 09/30/21 [Verito-D 12 Hour Tablet] Loratadine [Claritin] 1 tab PO DAILY 09/24/19 09/30/21 Docusate Sodium 100Mg Capsule 1 cap PO DAILY 06/28/22 06/28/22 [Colace 100Mg Capsule] - Allergies Allergies/Adverse Reactions: Allergies Allergy/AdvReac Type Severity Reaction Status Date / Time codeine [Codeine] AdvReac Mild Nausea Verified 09/08/22 20:15 - Social History Does the pt smoke?: No Smoking Status: Never smoker Does the pt drink ETOH?: No Does the pt have substance abuse?: No - Immunizations Immunizations are current?: Yes PD ED PE NORMAL - General General: Alert and oriented X 3, No acute distress. No: Well developed/nourished (Geriatric appearance. She does have radiation tattooing on her scalp for the treatment of skin cancer) - HEENT HEENT: Ears normal, Moist mucous membranes - Neck Neck: Supple, no meningeal sign, No adenopathy - Cardiac Cardiac: RRR (Paced cardiac rhythm on the monitor.), Strong equal pulses. No: No murmur - Respiratory Respiratory: No respiratory distress - Abdomen Abdomen: Normal bowel sounds, Soft - Extremities Extremities: No: No edema (Significant 3+ pitting edema bilateral lower extremities. She does have evidence of peripheral vascular disease. 2+ pulses. 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 Eye Opening: Spontaneous Motor: Obeys Commands Verbal: Oriented GCS Score: 15 Results - Vitals Vitals: Vital Signs - 24 hr 09/08/22 09/08/22 20:09 20:58 Temperature 36.5 C Heart Rate 71 60 Respiratory 16 16 Rate Blood Pressure 142/73 H 139/80 H O2 Saturation 96 100 Oxygen O2 Source Room air - Rads (name of study) cxr Relevant Findings:: EMP independent interpretation of test (No acute cardiopulmonary process) PD Medical Decision Making - ED course Complexity details: reviewed results, re-evaluated patient, considered differential, d/w patient, d/w family ED course: 87-year-old female who has a known history of A-fib anticoagulated on Coumadin as well as heart failure presents to the emergency department for evaluation of progressive lower extremity edema. She states she has had very swollen legs for many years but is been particularly worse over the last several weeks. This is associated with dyspnea as well. She was seen in local walk-in clinic yesterday where labs were obtained that included a BNP. She was preemptively started on Lasix yesterday and has filled this prescription. I am able to review the labs obtained yesterday. I do note that she has an elevated hemoglobin at 16 which is essentially unchanged. A BNP was obtained which was 734. There is no previous for comparison. Patient does have a preserved renal function. Clinically the patient appears well. She does not appear labored or dyspneic on my exam. Room air saturations are 96%. We did obtain a chest x-ray today which per my interpretation shows no findings to suggest significant volume overload pleural effusion or congestive findings. Clinically the patient has heart failure however she would not need to be hospitalized for this given the lack of hypoxia. I am encouraging her to continue using the Lasix. I have encouraged her to take 40 mg for the next 3 days then resume the 20 mg dose started yesterday. I am advising her to call Dr. Adams's office tomorrow to ask for an echocardiogram. Patient is scheduled to see her Skinny on September [address] [facility]. I discussed with the patient and her son the usual emergent return precautions for worsening symptoms which would include severe dyspnea, hypoxia, chest pain or failure of the swelling to begin to improve despite the Lasix.. Departure - Departure Disposition: 01 Home, Self Care Clinical Impression: Shortness of breath, History of atrial fibrillation, Lower extremity edema, Elevated brain natriuretic peptide (BNP) level Condition: Serious Record reviewed to determine appropriate education?: Yes Follow-Up: Colin Adams MD [Primary Care Provider] - Comments: Norma degroot are advised to come to the ER because the provider you saw yesterday told you you had abnormal labs. When I evaluate these labs I see that a specific lab called a BNP is elevated. This is sometimes a marker of heart failure. Dr. Ayon advised you to begin taking Lasix 20 mg a day yesterday. I concur with this recommendation and it would be the medication we would advise from the emergency department to treat heart failure and lower extremity swelling. For the next 3 days please take 40 mg a day then resume 20 mg daily. Elevate your legs is much as you can at night. Wear compression stockings when out of bed. Please talk to Dr. Adams's office tomorrow. You should be referred for an echocardiogram. This is an ultrasound that can help determine your heart function and degree of heart failure. 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 If you find that you are having worsening swelling, develop worsening shortness of air, develop any chest pain despite taking the Lasix then you should return to the ER for a repeat evaluation
[2022-09-08 20:59] VITALS: BP 139/80
--- NOTE | 2022-09-08 21:14 | XRAY Report ---
PROCEDURE: Chest 1 View X-Ray INDICATIONS: chest pain TECHNIQUE: One view of the chest was acquired. COMPARISON: Chest x-ray 09/07/2022. FINDINGS: Surgical changes and devices: Left chest wall dual-lead pacemaker redemonstrated. Lungs and pleura: There is a persistent small to moderate right pleural effusion with right basilar compressive atelectasis or consolidation. Minimal left pleural effusion is also redemonstrated. Mediastinum: Mediastinal contours appear unchanged. Heart size is enlarged. Bones and chest wall: No suspicious bony lesions. Overlying soft tissues appear unremarkable. IMPRESSION: 1. Persistent [id number] right pleural effusion with right basilar compressive atelectasis or consolidation. 2. Minimal left pleural effusion. Reviewed by: Trey Parks MD on 09/08/2022 9:12 PM PDT Approved by: Trey Parks MD on 09/08/2022 9:12 PM PDT Station ID: [id number]
== END 2022-09-08 20:59 | disposition home or self-care (01) ==
LOC: ED 20:01
DX: I11.0 Hypertensive heart disease with heart failure (principal); I50.9 Heart failure, unspecified; R06.02 Shortness of breath; I48.91 Unspecified atrial fibrillation; R79.89 Other specified abnormal findings of blood chemistry; Z79.01 Long term (current) use of anticoagulants
CPT/HCPCS: 99283; 99284

== ENCOUNTER 2022-12-21 11:30 | Outpatient (CLI) | payer MEDICARE, OTHER | END 2022-12-21 11:31 | disposition home or self-care (01) | LOC: LAB 11:30 | PROVIDERS: ATTEND Internal Medicine | DX: I48.91 Unspecified atrial fibrillation (principal); Z79.01 Long term (current) use of anticoagulants | CPT/HCPCS: 36416; 85610 ==

== ENCOUNTER 2023-07-11 13:34 | Outpatient (CLI) | payer MEDICARE, OTHER | END 2023-07-11 13:35 | disposition home or self-care (01) | LOC: LAB 13:34 | PROVIDERS: ATTEND Internal Medicine | DX: I48.91 Unspecified atrial fibrillation (principal); Z79.01 Long term (current) use of anticoagulants | CPT/HCPCS: 36416; 85610 ==